=== PATIENT | male | born 1950 | race Caucasian/White ===

== ENCOUNTER 2016-12-18 19:09 | Emergency (ER) | payer MEDICARE ==
[2016-12-18 20:07] VITALS: BP 137/85
--- NOTE | 2016-12-18 20:07 | ED ---
Throat Pain/Nasal Congestion - HPI Summary HPI Summary: Patient presents to the ED with nosebleed x 45 minutes. On arrival, the nosebleed is controlled. The nosebleed occurred spontaneously while at home, with no associated trauma or injury. He denies previous nosebleeds. He is currently taking a baby aspirin daily along with his BP and diabetes medications. He denies VINCENT, neck pain, nose pain or difficulty breathing or swallowing. He is otherwise feeling well. His BP on arrival was 156/93 and usually states his BP is controlled with his medications morning and night. Denies any other symptoms. He states after 20 minutes, he was only concerned d/ t not being able stop the bleeding for 20 minutes. - History of Current Complaint Chief Complaint: EDBleedingDisorder Time Seen by Provider: 12/18/16 19:39 Hx Obtained From: Patient Onset/Duration: Sudden Onset Severity: Mild - Epiglottits Risk Factors Epiglottis Risk Factors: Negative - Allergies/Home Medications Allergies/Adverse Reactions: Allergies Allergy/AdvReac Type Severity Reaction Status Date / Time Insulin Allergy Intermediate Nausea Verified 12/18/16 19:21 Levofloxacin [From Levaquin] Allergy Intermediate Unknown Verified 12/18/16 19: 21 Reaction Details Sulfa Antibiotics Allergy Intermediate Unknown Verified 12/18/16 19:21 Reaction Details PMH/Surg Hx/FS Hx/Imm Hx Previously Healthy: Yes - see below Endocrine/Hematology History: Reports: Hx Diabetes Cardiovascular History: Reports: Hx Hypertension - ON MEDICATION GI History: Reports: Hx Gastroesophageal Reflux Disease Musculoskeletal History: Reports: Hx Arthritis - KNEES AND SHOULDER Sensory History: Reports: Hx Contacts or Glasses - GLASSES, Hx Hearing Aid Opthamlomology History: Reports: Hx Contacts or Glasses - GLASSES - Surgical History Surgery Procedure, Year, and Place: [place] [facility] [place] [facility] [place] NUMEROUS [place] [facility] [place] [facility] [place] Anesthesia Reactions: No - Immunization History Hx Pertussis Vaccination: No Immunizations Up to Date: Unable to Obtain/Confirm Infectious Disease History: No Infectious Disease History: Denies: Traveled Outside the [place] in Last 30 Days - Social History Occupation: Unemployed Lives: With Family Alcohol Use: None Hx Substance Use: No Substance Use Type: Reports: None Hx Tobacco Use: No Smoking Status (MU): Never Smoked Tobacco Review of Systems Constitutional: Negative Eyes: Negative Positive: Epistaxis Respiratory: Negative Genitourinary: Negative Positive: no symptoms reported, see HPI Musculoskeletal: Negative Skin: Negative Neurological: Negative Psychological: Normal All Other Systems Reviewed And Are Negative: Yes Physical Exam Triage Information Reviewed: Yes Vital Signs On Initial Exam: Initial Vitals Temp Pulse Resp BP Pulse Ox 97.6 F 90 16 156/93 95 12/18/16 19:23 12/18/16 19:23 12/18/16 19:23 12/18/16 19:23 12/18/16 19:23 Vital Signs Reviewed: Yes Appearance: Positive: Well-Appearing, Well-Nourished Skin: Positive: Warm, Skin Color Reflects Adequate Perfusion Head/Face: Positive: Normal Head/Face Inspection Eyes: Positive: EOMI, TERESA, Conjunctiva Clear ENT: Positive: Normal ENT inspection, Pharynx normal Neck: Positive: Supple, Nontender, No Lymphadenopathy Respiratory/Lung Sounds: Positive: Clear to Auscultation, Breath Sounds Present Cardiovascular: Positive: Normal, RRR, Pulses are Symmetrical in both Upper and Lower Extremities Musculoskeletal: Positive: Normal, Strength/ROM Intact Neurological: Positive: Sensory/Motor Intact, Alert, Oriented to Person Place, Time, Speech Normal Psychiatric: Positive: Normal - [place] Coma Scale Coma Scale Total: 15 Diagnostics - Vital Signs Vital Signs Temp Pulse Resp BP Pulse Ox 12/18/16 19:23 97.6 F 90 16 156/93 95 - Laboratory Lab Statement: Any lab studies that have been ordered have been reviewed, and results considered in the medical decision making process. EENT Course/Dx - Course Course Of Treatment: Discussed possibilities for nosebleeds and treatment options. Bleeding is controlled at arrival to the ED. BP is controlled. Nares are without obvious lesions or open areas. Denies trauma or surgeries. Aspirin daily 81mg. Denies other blood thinners. He is given tongs to stop any nosebleeds from occurring again and instructions given. He is OK with discharge. - Differential Diagnoses Differential Diagnoses: Epistaxis, Foreign Body, Fracture - Diagnoses Provider Diagnoses: Epistaxis not due to trauma Discharge - Discharge Plan Condition: Stable Disposition: HOME Patient Education Materials: Nosebleed (ED) Referrals: Fracisco Rodriguez MD [Primary Care Provider] - Additional Instructions: Follow up with your PCP for further blood work Your BP was slightly elevated today at 156/93. Take all your prescribed medications with no changes If bleeding occurs again, use the tongs to place over the bridge of the nose and do not check for over 20 minutes. Stay upright and do not lean back. If bleeding continues despite this measure, return to the ED.
== END 2016-12-18 20:10 | disposition home or self-care (01) ==
LOC: ED 19:09
DX: R04.0 Epistaxis (principal); Z79.82 Long term (current) use of aspirin; I10 Essential (primary) hypertension; K21.9 Gastro-esophageal reflux disease without esophagitis; E11.9 Type 2 diabetes mellitus without complications; Z88.2 Allergy status to sulfonamides; Z79.4 Long term (current) use of insulin
CPT/HCPCS: 99281